=== PATIENT | male | born 1960 | race American Indian/Alaskan Native ===

== ENCOUNTER 2016-12-09 23:43 | Emergency (ER) | payer MEDICARE ==
[2016-12-10] MEDS ORDERED: ZOFRAN IV ONE (00:26)
[2016-12-10] MEDS ORDERED: TORADOL IV ONE (00:26)
[2016-12-10] MEDS ORDERED: NACL 0.9% 1000 ML 1,000 ML IV ONE (00:26)
[2016-12-10] MEDS ORDERED: DILAUDID IV ONE (00:26)
[2016-12-10 00:34] LABS: Alanine Aminotransferase 13 units/L (7-56); Albumin 4.1 g/dL (3.9-5); Albumin/Globulin Ratio 1.1 %; Alkaline Phosphatase 52 units/L (35-129); Anion Gap 15 mmol/L; Blood Urea Nitrogen 20 mg/dL (9-20); Calcium 9.1 mg/dL (8.4-10.2); Carbon Dioxide 23 mmol/L (22-30); Chloride 101.6 mmol/L (98-107); Glucose 124 mg/dL (75-100); Lipase 20 units/L (13-60); Sodium 136 mmol/L (137-145); Total Protein 7.9 g/dL (6.3-8.2)
[2016-12-10 00:35] LABS: Basophils % (Auto) 0.7 % (0.0-1.8); Eosinophils % (Auto) 1.4 % (0.0-4.3); Hematocrit 43.9 % (35.5-45.6); Hemoglobin 14.9 gm/dl (11.8-15.2); Mean Corpuscular HGB Conc 34 % (32-34); Mean Corpuscular Hemoglobin 31 pg (28-32); Mean Corpuscular Volume 92 fl (84-94); Platelet Count 167 K/mm3 (140-440); Red Blood Count 4.79 M/mm3 (3.65-5.03); Red Cell Distribution Width 13.8 % (13.2-15.2); White Blood Count 10.5 K/mm3 (4.5-11.0)
[2016-12-10 01:01] LABS: Bilirubin,Urine NEG (Negative); Blood,Urine LG (Negative); Ketones,Urine NEG (Negative); Leukocyte Esterase,Urine NEG (Negative); Mucus,Urine FEW /HPF; Nitrite,Urine NEG (Negative); Urobilinogen,Urine < 2.0 mg/dL (<2.0)
--- NOTE | 2016-12-10 02:01 | Cat Scan Report ---
FINAL REPORT PROCEDURE: CT ABDOMEN PELVIS WO CON TECHNIQUE: Computerized axial tomography of the abdomen and pelvis was performed without intravenous contrast. This study is performed without intravascular contrast material and its sensitivity for abdominal and pelvic pathology, including neoplasms, inflammation, abscess, free fluid, thrombosis, arterial dissection and infarction, is reduced compared with a contrast enhanced study. HISTORY: llq pain, n/v COMPARISON: No prior studies are available for comparison. FINDINGS: Visualized lower thorax: No significant abnormality. Liver: Normal size and attenuation. Spleen: Normal size and attenuation. Gallbladder and biliary system: Normal. Pancreas: Normal. Adrenals: Normal. Kidneys: Moderate left hydronephrosis and hydroureter down to a 4 millimeter stone 3 centimeters above the left ureteral vesical junction. The right collecting system is normal.. GI tract: No obstruction. No ileus or enteritis. The cecum, appendix and colon are normal.. Lymph nodes and mesentery: Normal. Vasculature: Moderate atherosclerosis of the aorta and branching vessels. Bladder: Normal. Reproductive organs: Normal. Peritoneum: No free fluid. Musculoskeletal structures: No significant abnormality. Other: None. IMPRESSION: Moderate left hydronephrosis and hydroureter down to a 4 millimeter stone 3 centimeters above the left ureteral vesical junction..
--- NOTE | 2016-12-10 02:40 | Emergency Department Report ---
ED Abdominal Pain HPI - General Chief Complaint: Abdominal Pain Stated Complaint: RT SIDE PAIN/VOMITING Time Seen by Provider: 12/10/16 00:25 Source: patient Mode of arrival: Ambulatory Limitations: No Limitations - History of Present Illness Initial Comments: 55-year-old male with a past medical history hypertension and previous right inguinal hernia repair presents to Hospital complaints of left lower quadrant abdominal pain 2 weeks and acutely worsened today. Pain is severe, rated 10/ 10 intensity, constant and associated with nausea and vomiting. Patient took a laxity of thinking that constipation was the cause of pain. No improvement after bowel movement. Denies previous history of kidney stones, hematuria, dysuria, or fever. Severity scale (0 -10): 2 - Related Data Home Medications Medication Instructions Recorded Confirmed Last Taken Lisinopril 10 mg PO DAILY 06/12/14 12/10/16 12/09/16 21:00 Previous Rx's Medication Instructions Recorded Last Taken Type Ketorolac [Toradol] 10 mg PO Q4H PRN #10 tablet 06/13/14 12/09/16 21:00 Rx Cyclobenzaprine [Flexeril] 10 mg PO TID PRN #15 tablet 02/28/16 12/09/16 21:00 Rx Ibuprofen [Motrin] 800 mg PO Q8HR PRN #15 tablet 02/28/16 12/09/16 21:00 Rx HYDROcodone/APAP 5-325 [[place] 1 each PO Q4HR PRN #20 tablet 12/10/16 Unknown Rx 5/325] Ketorolac [Toradol] 10 mg PO Q6H PRN #20 tablet 12/10/16 Unknown Rx Ondansetron [Zofran Odt] 4 mg PO Q8HR PRN #20 tab.rapdis 12/10/16 Unknown Rx Tamsulosin [Flomax] 0.4 mg PO QDAY #7 cap 12/10/16 Unknown Rx Allergies Allergy/AdvReac Type Severity Reaction Status Date / Time No Known Allergies Allergy Verified 12/10/16 00:43 ED Review of Systems ROS: Stated complaint: RT SIDE PAIN/VOMITING Other details as noted in HPI Comment: All other systems reviewed and negative Other: Constitutional: No fevers chills Eyes: No eye pain visual changes or discharge ENT: No ear pain or throat pain Neck: Denies pain Respiratory: Denies cough wheezing shortness of breath Cardiovascular: Denies chest pain, palpitations, syncope GI: As per HPI : Denies dysuria, urinary frequency, or urgency Musculoskeletal: Denies back pain, joint swelling Skin: Denies rash, lesions, erythema Neurologic: Denies headache, numbness, weakness Psychiatric: Denies suicidal ideation, hallucinations y ED Past Medical Hx - Past Medical History Previous Medical History?: Yes Hx Hypertension: Yes - Surgical History Past Surgical History?: Yes Additional Surgical History: left shoulder / right groin - Social History Smoking Status: Current Every Day Smoker Substance Use Type: Alcohol - Medications Home Medications: Home Medications Medication Instructions Recorded Confirmed Last Taken Type Lisinopril 10 mg PO DAILY 06/12/14 12/10/16 12/09/16 21:00 History Ketorolac [Toradol] 10 mg PO Q4H PRN #10 tablet 06/13/14 12/10/16 12/09/16 21: 00 Rx Cyclobenzaprine [Flexeril] 10 mg PO TID PRN #15 tablet 02/28/16 12/10/16 21:00 Rx Ibuprofen [Motrin] 800 mg PO Q8HR PRN #15 tablet 02/28/16 12/10/16 12/09/16 21: 00 Rx HYDROcodone/APAP 5-325 [[place] 1 each PO Q4HR PRN #20 tablet 12/10/16 Unknown Rx 5/325] Ketorolac [Toradol] 10 mg PO Q6H PRN #20 tablet 12/10/16 Unknown Rx Ondansetron [Zofran Odt] 4 mg PO Q8HR PRN #20 tab.rapdis 12/10/16 Unknown Rx Tamsulosin [Flomax] 0.4 mg PO QDAY #7 cap 12/10/16 Unknown Rx ED Physical Exam - General Limitations: No Limitations - Other Other exam information: General: Positive distress secondary to pain Head exam: Atraumatic, normocephalic Eyes exam: Normal appearance, pupils equal reactive to light, extraocular movements intact ENT: Moist mucous membrane, normal oropharynx Neck exam: Normal inspection, full range of motion, no meningismus nontender Respiratory exam: Clear to auscultation bilateral, no wheezes, rales, crackles Cardiovascular: Normal rate and rhythm, normal heart sounds Abdomen: Soft, nondistended, left lower quadrant tenderness, with normal bowel sounds, no rebound, or guarding Extremity: Full range of motion normal inspection no deformity Back: Normal Inspection, full range of motion, no tenderness Neurologic: Alert, oriented x3, cranial nerves intact, no motor or sensory deficit Psychiatric: normal affect, normal mood Skin: Warm, dry, intact ED Course Vital Signs 12/09/16 12/10/16 12/10/16 23:50 00:44 00:46 Temperature 97.9 F Pulse Rate 85 83 Respiratory 22 24 24 Rate Blood Pressure 165/108 Blood Pressure 158/99 [Left] O2 Sat by Pulse 97 98 Oximetry 12/10/16 02:00 Temperature Pulse Rate 80 Respiratory 20 Rate Blood Pressure Blood Pressure 99/80 [Left] O2 Sat by Pulse 99 Oximetry - Reevaluation(s) Reevaluation #1: 12/10/16 02:39 After pain medication nausea medication the ED patient had improvement of symptoms. Also received 1 L normal saline. ED Medical Decision Making - Lab Data Result diagrams: 12/10/16 00:00 12/10/16 00:00 Lab Results 12/10/16 12/10/16 12/10/16 Range/Units 00:00 00:00 00:11 WBC 10.5 (4.5-11.0) K/mm3 RBC 4.79 (3.65-5.03) M/mm3 Hgb 14.9 (11.8-15.2) gm/dl Hct 43.9 (35.5-45.6) % MCV 92 (84-94) fl MCH 31 (28-32) pg MCHC 34 (32-34) % RDW 13.8 (13.2-15.2) % Plt Count 167 (140-440) K/mm3 Lymph % (Auto) 12.9 L (13.4-35.0) % [place] % (Auto) 7.5 H (0.0-7.3) % Eos % (Auto) 1.4 (0.0-4.3) % Baso % (Auto) 0.7 (0.0-1.8) % Lymph # 1.4 (1.2-5.4) K/mm3 [place] # 0.8 (0.0-0.8) K/mm3 Eos # 0.1 (0.0-0.4) K/mm3 Baso # 0.1 (0.0-0.1) K/mm3 Seg Neutrophils % 77.5 H (40.0-70.0) % Seg Neutrophils # 8.1 H (1.8-7.7) K/mm3 Sodium 136 L (137-145) mmol/L Potassium 4.0 (3.6-5.0) mmol/L Chloride 101.6 (98-107) mmol/L Carbon Dioxide 23 (22-30) mmol/L Anion Gap 15 mmol/L BUN 20 (9-20) mg/dL Creatinine 1.0 (0.8-1.5) mg/dL Estimated GFR > 60 ml/min BUN/Creatinine Ratio 20.00 % Glucose 124 H (75-100) mg/dL Calcium 9.1 (8.4-10.2) mg/dL Total Bilirubin 0.50 (0.1-1.2) mg/dL AST 16 (5-40) units/L ALT 13 (7-56) units/L Alkaline Phosphatase 52 (35-129) units/L Total Protein 7.9 (6.3-8.2) g/dL Albumin 4.1 (3.9-5) g/dL Albumin/Globulin Ratio 1.1 % Lipase 20 (13-60) units/L Urine Color Yellow (Yellow) Urine Turbidity Clear (Clear) Urine pH 5.0 (5.0-7.0) Ur Specific [place] 1.032 H (1.003-1.030) Urine Protein 30 mg/dl (Negative) mg/dL Urine Glucose (UA) Neg (Negative) mg/dL Urine Ketones Neg (Negative) mg/dL Urine Blood Lg (Negative) Urine Nitrite Neg (Negative) Urine Bilirubin Neg (Negative) Urine Urobilinogen < 2.0 (<2.0) mg/dL Ur Leukocyte Esterase Neg (Negative) Urine WBC (Auto) 2.0 (0.0-6.0) /HPF Urine RBC (Auto) 32.0 (0.0-6.0) /HPF U Epithel Cells (Auto) < 1.0 (0-13.0) /HPF Calcium Oxalate Crystal 3+ Hyaline Casts 2 /LPF Urine Mucus Few /HPF - Radiology Data Radiology results: report reviewed CT abdomen and pelvis noncontrast: Moderate left hydronephrosis and hydroureter down to a 4 mm stone 3 cm above the left ureterovesical junction - Medical Decision Making Plan to discharge patient home. Positive relief of symptoms with ED treatment. Patient will be encouraged to follow-up with urology for renal stone. - Differential Diagnosis renal colic, diverticulitis, UTI Critical Care Time: No Critical care attestation.: If time is entered above; I have spent that time in minutes in the direct care of this critically ill patient, excluding procedure time. ED Disposition Clinical Impression: Renal colic on left side Disposition: TO HOME OR SELFCARE Is pt being admited?: No Does the pt Need Aspirin: No Condition: Stable Instructions: Renal Colic (ED) Additional Instructions: Take medication as prescribed. Follow-up with the urologist provided. Take a copy of your CAT scan report to your follow-up. Return if symptoms worsen. Prescriptions: HYDROcodone/APAP 5-325 [[place] 5/325] 1 each PO Q4HR PRN #20 tablet PRN Reason: Pain Ketorolac [Toradol] 10 mg PO Q6H PRN #20 tablet PRN Reason: Pain Ondansetron [Zofran Odt] 4 mg PO Q8HR PRN #20 tab.rapdis PRN Reason: Nausea And Vomiting Tamsulosin [Flomax] 0.4 mg PO QDAY #7 cap Referrals: TAMMY LANDRUM MD [Staff Physician] - 3-5 Days (Urology) Time of Disposition: 02:56
[2016-12-10] MEDS ORDERED: NORCO 5/325 PO ONE (02:52)
[2016-12-10 03:35] VITALS: BP 132/60
== END 2016-12-10 03:46 | disposition home or self-care (01) ==
LOC: ED 23:43
DX: N23 Unspecified renal colic (principal); I10 Essential (primary) hypertension; F17.200 Nicotine dependence, unspecified, uncomplicated
CPT/HCPCS: 36415; 74176; 80053; 81001; 83690; 85025; 96361; 96374; 96375; 99284; J1170; J1885; J2405; J7030

== ENCOUNTER 2017-05-07 12:07 | Emergency (ER) | payer MEDICARE ==
[2017-05-07 12:16] VITALS: BP 134/78
[2017-05-07 12:46] LABS: Bacteria,Urine 1+ /HPF (Negative); Bilirubin,Urine NEG (Negative); Blood,Urine SM (Negative); Ketones,Urine TR mg/dL (Negative); Leukocyte Esterase,Urine NEG (Negative); Mucus,Urine 1+ /HPF; Nitrite,Urine NEG (Negative); Protein,Urine <15 mg/dL mg/dL (Negative)
--- NOTE | 2017-05-07 13:30 | Emergency Department Report ---
ED Male HPI - General Chief complaint: Urogenital-Male Stated complaint: PAIN WITH URINATION Time Seen by Provider: 05/07/17 12:45 Source: patient Mode of arrival: Ambulatory Limitations: No Limitations - History of Present Illness MD Complaint: dysuria -: Gradual Location: penis Radiation: none Severity: mild Quality: burning Consistency: constant Improves with: urination Worsens with: none other (had sex w his 's twin; while out of town.). denies: discharge, swelling, mass, rash, urinary retention, blood in urine, dysuria, fever, nausea/ vomiting, incontinence - Related Data Sexually active: Yes Home Medications Medication Instructions Recorded Confirmed Last Taken Lisinopril 10 mg PO DAILY 06/12/14 12/10/16 12/09/16 21:00 Previous Rx's Medication Instructions Recorded Last Taken Type Ketorolac [Toradol] 10 mg PO Q4H PRN #10 tablet 06/13/14 12/09/16 21:00 Rx Cyclobenzaprine [Flexeril] 10 mg PO TID PRN #15 tablet 02/28/16 12/09/16 21:00 Rx Ibuprofen [Motrin] 800 mg PO Q8HR PRN #15 tablet 02/28/16 12/09/16 21:00 Rx HYDROcodone/APAP 5-325 [[place] 1 each PO Q4HR PRN #20 tablet 12/10/16 Unknown Rx 5/325] Ketorolac [Toradol] 10 mg PO Q6H PRN #20 tablet 12/10/16 Unknown Rx Ondansetron [Zofran Odt] 4 mg PO Q8HR PRN #20 tab.rapdis 12/10/16 Unknown Rx Tamsulosin [Flomax] 0.4 mg PO QDAY #7 cap 12/10/16 Unknown Rx Allergies Allergy/AdvReac Type Severity Reaction Status Date / Time No Known Allergies Allergy Verified 12/10/16 00:43 ED Review of Systems ROS: Stated complaint: PAIN WITH URINATION Other details as noted in HPI Comment: All other systems reviewed and negative Genitourinary: dysuria ED Past Medical Hx - Past Medical History Hx Hypertension: Yes - Surgical History Past Surgical History?: Yes Additional Surgical History: left shoulder / right groin - Family History Family history: no significant - Social History Smoking Status: Current Every Day Smoker Substance Use Type: Alcohol - Medications Home Medications: Home Medications Medication Instructions Recorded Confirmed Last Taken Type Lisinopril 10 mg PO DAILY 06/12/14 12/10/16 12/09/16 21:00 History Ketorolac [Toradol] 10 mg PO Q4H PRN #10 tablet 06/13/14 12/10/16 12/09/16 21: 00 Rx Cyclobenzaprine [Flexeril] 10 mg PO TID PRN #15 tablet 02/28/16 12/10/16 21:00 Rx Ibuprofen [Motrin] 800 mg PO Q8HR PRN #15 tablet 02/28/16 12/10/16 12/09/16 21: 00 Rx HYDROcodone/APAP 5-325 [[place] 1 each PO Q4HR PRN #20 tablet 12/10/16 Unknown Rx 5/325] Ketorolac [Toradol] 10 mg PO Q6H PRN #20 tablet 12/10/16 Unknown Rx Ondansetron [Zofran Odt] 4 mg PO Q8HR PRN #20 tab.rapdis 12/10/16 Unknown Rx Tamsulosin [Flomax] 0.4 mg PO QDAY #7 cap 12/10/16 Unknown Rx ED Physical Exam - General Limitations: No Limitations General appearance: alert - Head Head exam: Present: atraumatic - Eye Eye exam: Present: PERRL - ENT ENT exam: Present: mucous membranes moist - Neck Neck exam: Present: normal inspection - Respiratory Respiratory exam: Present: normal lung sounds bilaterally - Cardiovascular Cardiovascular Exam: Present: regular rate - GI/Abdominal GI/Abdominal exam: Present: soft, normal bowel sounds - Rectal Rectal exam: Present: deferred - Extremities Exam Extremities exam: Present: normal inspection - Back Exam Back exam: Present: normal inspection, full ROM. Absent: tenderness, CVA tenderness (R), CVA tenderness (L), muscle spasm - Neurological Exam Neurological exam: Present: alert, oriented X3, CN II-XII intact, normal gait, reflexes normal - Psychiatric Psychiatric exam: Present: normal affect, normal mood - Skin Skin exam: Present: warm, dry, intact. Absent: other ED Course Vital Signs 05/07/17 12:11 Temperature 98.4 F Pulse Rate 100 H Respiratory 16 Rate Blood Pressure 134/78 O2 Sat by Pulse 97 Oximetry - Reevaluation(s) Reevaluation #1: 05/07/17 15:22 to er w dysuria concerned that he got std from his 's twin sister. out of town and the twin tricked him no dc vss nad no fever taking po abd snt labs noted discussed with pt empiric tx per cdc dc home w dc poc ED Medical Decision Making - Lab Data Result diagrams: 05/07/17 13:56 05/07/17 13:56 - Medical Decision Making see note - Differential Diagnosis uti v std Critical care attestation.: If time is entered above; I have spent that time in minutes in the direct care of this critically ill patient, excluding procedure time. ED Disposition Clinical Impression: Dysuria, STD (male) Disposition: DC-01 TO HOME OR SELFCARE Is pt being admited?: No Does the pt Need Aspirin: No Condition: Stable Instructions: Sexually Transmitted Diseases (ED), Safe Sex (ED), Dysuria (ED) Additional Instructions: safe sex follow up with urology Referrals: SILVANA PUENTES MD [Staff Physician] - 3-5 Days Time of Disposition: 15:10
[2017-05-07 14:20] LABS: Hematocrit 44.7 % (35.5-45.6); Hemoglobin 14.8 gm/dl (11.8-15.2); Mean Corpuscular HGB Conc 33 % (32-34); Mean Corpuscular Hemoglobin 31 pg (28-32); Mean Corpuscular Volume 94 fl (84-94); Platelet Count 169 K/mm3 (140-440); Red Blood Count 4.74 M/mm3 (3.65-5.03); Red Cell Distribution Width 13.4 % (13.2-15.2); White Blood Count 5.1 K/mm3 (4.5-11.0)
[2017-05-07 14:58] LABS: Alanine Aminotransferase 13 units/L (7-56); Albumin 3.8 g/dL (3.9-5); Albumin/Globulin Ratio 1.1 %; Alkaline Phosphatase 54 units/L (35-129); Anion Gap 13 mmol/L; BUN/Creatinine Ratio 13; Blood Urea Nitrogen 10 mg/dL (9-20); Calcium 9.3 mg/dL (8.4-10.2); Carbon Dioxide 29 mmol/L (22-30); Chloride 101.6 mmol/L (98-107); Glucose 85 mg/dL (75-100); Potassium 4.6 mmol/L (3.6-5.0); Sodium 139 mmol/L (137-145); Total Protein 7.3 g/dL (6.3-8.2)
[2017-05-07] MEDS ORDERED: ZITHROMAX PO ONE (15:12)
[2017-05-07] MEDS ORDERED: XYLOCAINE 1% MPF 5 mL INFILTRATI ONE (15:12)
[2017-05-07] MEDS ORDERED: ROCEPHIN IM ONE (15:12)
== END 2017-05-07 15:41 | disposition home or self-care (01) ==
LOC: ED 12:07
DX: R30.0 Dysuria (principal); I10 Essential (primary) hypertension; F17.200 Nicotine dependence, unspecified, uncomplicated
CPT/HCPCS: 36415; 80053; 81001; 85025; 87591; 96372; 99283; J0696

== ENCOUNTER 2017-05-12 17:40 | Emergency (ER) | payer MEDICARE ==
[2017-05-12 19:38] LABS: Bilirubin,Urine NEG (Negative); Blood,Urine MOD (Negative); Ketones,Urine NEG (Negative); Leukocyte Esterase,Urine NEG (Negative); Mucus,Urine FEW /HPF; Nitrite,Urine NEG (Negative)
--- NOTE | 2017-05-12 20:16 | Emergency Department Report ---
ED Male HPI - General Chief complaint: Urogenital-Male Stated complaint: GENITALS BURNING Time Seen by Provider: 05/12/17 19:36 Source: patient Mode of arrival: Ambulatory Limitations: No Limitations - History of Present Illness Initial comments: 56 y.o. male, presents with dysuria x 5 days. He was treated for STD 5 days ago in ER. Symptoms improved but returned a few days ago. States he had intercourse with sister 6 days ago while was out of town. Admits to low abdominal pain, dysuria, and frequency. Denies discharge, testicular swelling, urgency, and odor. MD Complaint: dysuria -: Gradual, days(s) (5) Location: penis Radiation: none Severity: moderate Severity scale (0 -10): 6 Quality: burning Consistency: intermittent Improves with: urination Worsens with: none new sexual partner dysuria. denies: discharge, swelling, mass, rash, urinary retention, blood in urine, fever, nausea/vomiting, incontinence - Related Data Sexually active: Yes Home Medications Medication Instructions Recorded Confirmed Last Taken Lisinopril 10 mg PO DAILY 06/12/14 12/10/16 12/09/16 21:00 Previous Rx's Medication Instructions Recorded Last Taken Type Ketorolac [Toradol] 10 mg PO Q4H PRN #10 tablet 06/13/14 12/09/16 21:00 Rx Cyclobenzaprine [Flexeril] 10 mg PO TID PRN #15 tablet 02/28/16 12/09/16 21:00 Rx Ibuprofen [Motrin] 800 mg PO Q8HR PRN #15 tablet 02/28/16 12/09/16 21:00 Rx HYDROcodone/APAP 5-325 [[place] 1 each PO Q4HR PRN #20 tablet 12/10/16 Unknown Rx 5/325] Ketorolac [Toradol] 10 mg PO Q6H PRN #20 tablet 12/10/16 Unknown Rx Ondansetron [Zofran Odt] 4 mg PO Q8HR PRN #20 tab.rapdis 12/10/16 Unknown Rx Tamsulosin [Flomax] 0.4 mg PO QDAY #7 cap 12/10/16 Unknown Rx Doxycycline Monohydrate 100 mg PO BID 7 Days #14 tablet 05/12/17 Unknown Rx Allergies Allergy/AdvReac Type Severity Reaction Status Date / Time No Known Allergies Allergy Verified 12/10/16 00:43 ED Review of Systems ROS: Stated complaint: GENITALS BURNING Other details as noted in HPI Constitutional: no symptoms reported. denies: chills, diaphoresis, fever, malaise, weakness Eyes: as per HPI. denies: eye pain, eye discharge, vision change ENT: as per HPI. denies: ear pain, throat pain, dental pain, hearing loss, epistaxis, congestion Respiratory: no symptoms reported, see HPI. denies: cough, orthopnea, shortness of breath, SOB with exertion, SOB at rest, stridor, wheezing Cardiovascular: as per HPI. denies: chest pain, palpitations, dyspnea on exertion, orthopnea, edema, syncope, paroxysmal nocturnal dyspnea Gastrointestinal: as per HPI, abdominal pain (lower abdominal). denies: nausea , vomiting, diarrhea, constipation, hematemesis, melena, hematochezia Genitourinary: dysuria, frequency. denies: urgency, hematuria, discharge, testicular pain, testicular mass Psychiatric: as per HPI. denies: anxiety, depression, auditory hallucinations, visual hallucinations, homicidal thoughts, suicidal thoughts ED Past Medical Hx - Past Medical History Previous Medical History?: Yes Hx Hypertension: Yes - Surgical History Past Surgical History?: No Additional Surgical History: left shoulder / right groin - Social History Smoking Status: Current Every Day Smoker Substance Use Type: Alcohol - Medications Home Medications: Home Medications Medication Instructions Recorded Confirmed Last Taken Type Lisinopril 10 mg PO DAILY 06/12/14 12/10/16 12/09/16 21:00 History Ketorolac [Toradol] 10 mg PO Q4H PRN #10 tablet 06/13/14 12/10/16 12/09/16 21: 00 Rx Cyclobenzaprine [Flexeril] 10 mg PO TID PRN #15 tablet 02/28/16 12/10/16 21:00 Rx Ibuprofen [Motrin] 800 mg PO Q8HR PRN #15 tablet 02/28/16 12/10/16 12/09/16 21: 00 Rx HYDROcodone/APAP 5-325 [[place] 1 each PO Q4HR PRN #20 tablet 12/10/16 Unknown Rx 5/325] Ketorolac [Toradol] 10 mg PO Q6H PRN #20 tablet 12/10/16 Unknown Rx Ondansetron [Zofran Odt] 4 mg PO Q8HR PRN #20 tab.rapdis 12/10/16 Unknown Rx Tamsulosin [Flomax] 0.4 mg PO QDAY #7 cap 12/10/16 Unknown Rx Doxycycline Monohydrate 100 mg PO BID 7 Days #14 tablet 05/12/17 Unknown Rx ED Physical Exam - General Limitations: No Limitations General appearance: alert, in no apparent distress - Head Head exam: Present: normal inspection - Eye Eye exam: Present: normal appearance, PERRL. Absent: EOMI, scleral icterus, conjunctival injection, nystagmus, periorbital swelling, periorbital tenderness Pupils: Present: normal accommodation. Absent: irregular, unequal, miosis, mydriatic - Respiratory Respiratory exam: Present: normal lung sounds bilaterally. Absent: respiratory distress, wheezes, rales, rhonchi, stridor, chest wall tenderness, accessory muscle use, decreased breath sounds, prolonged expiratory - Cardiovascular Cardiovascular Exam: Present: regular rate, normal rhythm, normal heart sounds. Absent: bradycardia, tachycardia, irregular rhythm, systolic murmur, diastolic murmur, rubs, gallop, clicks - GI/Abdominal GI/Abdominal exam: Present: soft, normal bowel sounds. Absent: distended, tenderness, guarding, rebound, rigid, diminished bowel sounds, hyperactive bowel sounds, hypoactive bowel sounds, organomegaly, mass, bruit, pulsatile mass , hernia - exam: Present: normal inspection. Absent: testicular tenderness, urethral discharge, scrotal swelling, vertical testicular lie External exam: Absent: normal external exam, erythema, swelling, lesions, lacerations, ecchymosis, bleeding - Back Exam Back exam: Present: normal inspection, full ROM. Absent: tenderness, CVA tenderness (R), CVA tenderness (L), muscle spasm, paraspinal tenderness, vertebral tenderness, rash noted - Neurological Exam Neurological exam: Present: alert, oriented X3, CN II-XII intact, normal gait. Absent: abnormal gait, motor sensory deficit - Psychiatric Psychiatric exam: Present: normal affect, normal mood. Absent: depressed, agitated, anxious, flat affect, manic, homicidal ideation, suicidal ideation - Skin Skin exam: Present: warm, dry, intact, normal color. Absent: rash, cyanosis, diaphoretic, erythema, urticaria, vesicles, petechiae, pallor, abrasion, ecchymosis ED Course Vital Signs 05/12/17 05/12/17 05/12/17 17:48 21:51 22:26 Temperature 97.9 F Pulse Rate 94 H 80 Respiratory 18 18 Rate Blood Pressure 155/102 165/97 Blood Pressure 165/97 [Left] O2 Sat by Pulse 99 98 Oximetry 05/12/17 22:48 Temperature Pulse Rate 84 Respiratory 18 Rate Blood Pressure Blood Pressure 142/80 [Left] O2 Sat by Pulse 98 Oximetry ED Medical Decision Making - Medical Decision Making 56 y.o. male, presents with dysuria x 5 days. Treated in ER last Monday for STD empirically. Patient did not take blood pressure medicine today. Given lisinopril 10 mg p.o. once. BP trending down. Advised to f/u with PCP. Start doxycycline 100 mg po bid x 10 days and urology. Critical care attestation.: If time is entered above; I have spent that time in minutes in the direct care of this critically ill patient, excluding procedure time. ED Disposition Clinical Impression: Urethritis, Dysuria Disposition: DC-01 TO HOME OR SELFCARE Is pt being admited?: No Does the pt Need Aspirin: No Condition: Stable Additional Instructions: Follow up with Urology. Prescriptions: Doxycycline Monohydrate 100 mg PO BID 7 Days #14 tablet Referrals: TOLU CENTENO MD [Staff Physician] - 3-5 Days Forms: STI Treatment and Prevention Time of Disposition: 22:49 Print Language: [id number]
[2017-05-12] MEDS ORDERED: XYLOCAINE 1% MPF 5 mL INFILTRATI ONE (21:18)
[2017-05-12] MEDS ORDERED: ROCEPHIN IM ONE (21:18)
[2017-05-12] MEDS ORDERED: ZESTRIL PO ONE (22:02)
[2017-05-12 22:50] VITALS: BP 165/97
== END 2017-05-12 22:54 | disposition home or self-care (01) ==
LOC: ED 17:40
DX: N34.2 Other urethritis (principal); R30.0 Dysuria; I10 Essential (primary) hypertension; F17.200 Nicotine dependence, unspecified, uncomplicated
CPT/HCPCS: 81001; 87086; 96372; 99283; J0696